=== PATIENT | female | born 1990 | race Caucasian/White ===

== ENCOUNTER 2017-07-02 09:18 | Emergency (ER) | payer MEDICAID ==
[~2017-07-02] VITALS: Ht 157.5 cm; Wt 56.7 kg
[2017-07-02 09:22] VITALS: BP 125/69
[2017-07-02] MEDS ORDERED: LIDOCAINE VISCOUS 2% UD 15 ML UDC ONE (09:51)
[2017-07-02] MEDS ORDERED: IBUPROFEN 600 MG TABLET PO ONE ×2 (09:52→10:00)
[2017-07-02] MEDS ORDERED: ACETAMINOPHEN 325 MG TABLET ONE (09:52)
[2017-07-02] MEDS ORDERED: LIDOCAINE VISCOUS 2% UD 15 ML UDC MM ONE (10:00)
[2017-07-02] MEDS ORDERED: ACETAMINOPHEN 325 MG TABLET PO ONE (10:00)
== END 2017-07-02 10:05 | disposition home or self-care (01) ==
LOC: ER 09:23
DX: J02.8 Acute pharyngitis due to other specified organisms (principal); B97.89 Other viral agents as the cause of diseases classified elsewhere
CPT/HCPCS: 99283; A4606; Z7610

== ENCOUNTER 2020-01-10 22:58 | Emergency (ER) | payer MEDICAID ==
[~2020-01-10] VITALS: Ht 157.5 cm; Wt 59.0 kg
--- NOTE | 2020-01-10 23:25 | NUR ---
PATIENT CAME TO ER BED 17 C/O UPPER ABDOMINAL PAIN RADIATING TO THE RIGHT FLANK SINCE LAST WEEK. PATIENT STATES THAT SHE HAS BEEN HAVING LOOSE BOWEL MOVEMENTS SINCE SUNDAY. PATIENT STATES SHE FEELS BLOATED.PATIENT STATES TAHT SHE HAD GONE TO URGENT CARE AND TELEMED EARLIER TODAY. AAOX4. NO SOB. BREATHING EVENLY AND UNLABORED ON ROOM AIR.
[2020-01-10] MEDS ORDERED: METOCLOPRAMIDE HCL 10 MG/2 ML VIAL ONE (23:28)
[2020-01-10] MEDS ORDERED: IV NS 0.9% 1,000 ML BAG IV ONE (23:30)
[2020-01-10] MEDS ORDERED: METOCLOPRAMIDE HCL 10 MG/2 ML VIAL IV ONE (23:30)
[2020-01-10 23:43] LABS: BASOPHILS % (AUTO) 0.2 % (0.0-2.0); EOSINOPHILS % (AUTO) 0.5 % (0.0-6.0); HEMATOCRIT 38 % (33-45); HEMOGLOBIN 12.7 g/dL (11.5-14.8); LYMPHOCYTES # (AUTO) 2.7 /CMM (0.8-4.8); LYMPHOCYTES % (AUTO) 28.5 % (20.0-44.0); MEAN CORPUSCULAR HGB CONC 33 g/dl (31.0-36.0); MEAN CORPUSCULAR VOLUME 87 fL (82-100); MONOCYTES # (AUTO) 0.8 /CMM (0.1-1.30); MONOCYTES % (AUTO) 7.9 % (2.0-12.0); NEUTROPHILS % (AUTO) 62.9 % (43.0-81.0); PLATELET COUNT (AUTO) 304 /CMM (150-450); RED BLOOD CELL COUNT(AUTO) 4.37 MIL/uL (4.0-5.2); WHITE BLOOD COUNT (AUTO) 9.6 K/uL (4.3-11.0)
--- NOTE | 2020-01-10 23:46 | NUR ---
MEDICATION REGLAN 10MG IV INFUSED WITH 50 ML OF NORMAL SALINE 0.9%.
[2020-01-10 23:52] LABS: CALCIUM, SERUM 8.7 mg/dL (8.5-10.1); POTASSIUM 3.4 mmol/L (3.5-5.1)
[2020-01-10 23:58] LABS: ALBUMIN 4.1 g/dL (3.4-5.0); BILIRUBIN,DIRECT 0.2 mg/dL (0.0-0.2); BILIRUBIN,TOTAL 0.5 mg/dL (0.2-1.0); TOTAL PROTEIN, SERUM 7.3 g/dL (6.4-8.2)
--- NOTE | 2020-01-10 23:59 | NUR ---
PATIENT STILL FEELS NAUSEOUS, MD NOTIFIED.
[2020-01-11] MEDS ORDERED: PROCHLORPERAZINE EDISYLATE 10 MG/2 ML VIAL IVP ONE
[2020-01-11] MEDS ORDERED: PROCHLORPERAZINE EDISYLATE 10 MG/2 ML VIAL ONE (00:04)
[2020-01-11 00:55] VITALS: BP 122/66
--- NOTE | 2020-01-11 00:55 | NUR ---
IV removed. Catheter intact and site benign. Pressure and 4x4 applied to site. No bleeding noted.
--- NOTE | 2020-01-11 00:55 | NUR ---
Patient discharged to home in stable condition. Written and verbal after care instructions given. Patient verbalizes understanding of instruction.
== END 2020-01-11 00:56 | disposition home or self-care (01) ==
LOC: ER 23:01
DX: A08.4 Viral intestinal infection, unspecified (principal); R19.7 Diarrhea, unspecified; Z60.2 Problems related to living alone
CPT/HCPCS: 36415; 80048; 80076; 83690; 84703; 85025; 96361; 96374; 96375; 99284; A4216; J0780; J2765; J7030

== ENCOUNTER 2020-01-12 13:53 | Emergency (ER) | payer MEDICAID ==
[~2020-01-12] VITALS: Ht 157.5 cm; Wt 59.0 kg
--- NOTE | 2020-01-12 14:00 | NUR ---
CAME IN FOR PAIN ON SURAL AREA. WAS TOLD BY "NURSE HOTLINE" THAT SHE HAS A BLOOD CLOT WHEN SHE TOLD THEM THAT SHE HAS HEART BURN AND PAIN IN BACK OF LEFT LEG, TO ER BED 11, HOOKED TO MONITOR, CHANGED TO [facility], AWAITING MD WARNER
--- NOTE | 2020-01-12 14:54 | NUR ---
FOR ANDREWS PARTIDA AT BEDSIDE
[2020-01-12] MEDS ORDERED: PANTOPRAZOLE 40 MG VIAL IV ONE (15:00)
[2020-01-12] MEDS ORDERED: PANTOPRAZOLE 40 MG VIAL ONE (15:14)
[2020-01-12 15:16] LABS: BASOPHILS % (AUTO) 0.4 % (0.0-2.0); EOSINOPHILS % (AUTO) 0.3 % (0.0-6.0); HEMATOCRIT 39 % (33-45); LYMPHOCYTES # (AUTO) 2.3 /CMM (0.8-4.8); LYMPHOCYTES % (AUTO) 30.4 % (20.0-44.0); MEAN CORPUSCULAR HGB CONC 33 g/dl (31.0-36.0); MEAN CORPUSCULAR VOLUME 88 fL (82-100); MONOCYTES # (AUTO) 0.6 /CMM (0.1-1.30); NEUTROPHILS # (AUTO) 4.5 /CMM (1.8-8.9); NEUTROPHILS % (AUTO) 60.9 % (43.0-81.0); PLATELET COUNT (AUTO) 280 /CMM (150-450); RED BLOOD CELL COUNT(AUTO) 4.46 MIL/uL (4.0-5.2); WHITE BLOOD COUNT (AUTO) 7.4 K/uL (4.3-11.0)
--- NOTE | 2020-01-12 15:20 | NUR ---
URINE SAMPLE COLLECTED AND SENT TO LAB
[2020-01-12 15:33] LABS: CALCIUM, SERUM 8.7 mg/dL (8.5-10.1); POTASSIUM 3.9 mmol/L (3.5-5.1)
[2020-01-12 15:36] LABS: APPEARANCE,URINE Clear (CLEAR); BILIRUBIN,URINE Negative (NEGATIVE); BLOOD, URINE Negative Ery/uL (NEGATIVE); COLOR,URINE Yellow (YELLOW); KETONES,URINE Negative (NEGATIVE); LEUKOCYTE ESTERASE ,URINE Negative (NEGATIVE); NITRITE, URINE Negative (NEGATIVE); PROTEIN,URINE Negative (NEGATIVE); UGLUCOSE Negative (NEGATIVE); UROBILINOGEN,URINE 0.2 EU/dL (0.2)
[2020-01-12 15:44] LABS: BILIRUBIN,DIRECT 0.1 mg/dL (0.0-0.2); BILIRUBIN,TOTAL 0.3 mg/dL (0.2-1.0); TOTAL PROTEIN, SERUM 7.6 g/dL (6.4-8.2)
--- NOTE | 2020-01-12 15:56 | NUR ---
CHILDREN'S TUTOR AT BEDSIDE FOR US
[2020-01-12] MEDS ORDERED: KETOROLAC TROMETHAMINE 15 MG/ML VIAL ONE (16:04)
[2020-01-12] MEDS ORDERED: KETOROLAC TROMETHAMINE INJ 30 MG/ML VIAL IV ONE (16:30)
--- NOTE | 2020-01-12 16:39 | NUR ---
IV removed. Catheter intact and site benign. Pressure and 4x4 applied to site. No bleeding noted. Patient discharged to home in stable condition. Written and verbal after care instructions given. Patient verbalizes understanding of instruction.
[2020-01-12 16:40] VITALS: BP 129/81
== END 2020-01-12 16:45 | disposition home or self-care (01) ==
LOC: ER 13:57
DX: M79.605 Pain in left leg (principal); E06.3 Autoimmune thyroiditis; Z60.2 Problems related to living alone
CPT/HCPCS: 36415; 80048; 80076; 81001; 83690; 83735; 84702; 85025; 93005 ×2; 93970; 96374; 96375; 99285; C9113; J1885; 81000-TC

== ENCOUNTER 2020-01-15 22:31 | Emergency (ER) | payer MEDICAID ==
[~2020-01-15] VITALS: Ht 157.5 cm; Wt 59.0 kg
--- NOTE | 2020-01-15 23:18 | NUR ---
WAIVER SIGNED, IN CHART
--- NOTE | 2020-01-15 23:24 | NUR ---
XRAY AT BEDSIDE
[2020-01-15 23:45] VITALS: BP 118/88
--- NOTE | 2020-01-15 23:46 | NUR ---
Patient discharged to home in stable condition. Written and verbal after care instructions given. Patient verbalizes understanding of instruction AND RX. PT AMBULATED OUT WITH A STEADY GAIT. VSS. NAD NOTED.
== END 2020-01-15 23:46 | disposition home or self-care (01) ==
LOC: ER 22:31
DX: K59.00 Constipation, unspecified (principal); Z60.2 Problems related to living alone
CPT/HCPCS: 74018

== ENCOUNTER 2022-10-08 03:29 | Emergency (ER) | payer MEDICAID, OTHER ==
[~2022-10-08] VITALS: Ht 157.5 cm; Wt 56.7 kg
[2022-10-08 04:01] VITALS: BP 108/70
--- NOTE | 2022-10-08 04:01 | NUR ---
BIBS WITH CC OF SORE THROAT X2 DAYS, WITH BODY ACHES AND LOW GRADE FEVER. PATIENT IS AAOX4. ABLE TO MAKE NEEDS KNOWN. PLACED COMFORTABLY IN BED 19
--- NOTE | 2022-10-08 04:16 | NUR ---
SEEN BY DR GONG AT BEDSIDE
--- NOTE | 2022-10-08 04:16 | NUR ---
COVID SWAB, STREP AND INFLUENZA SWAB DONE AND SENT TO LAB
--- NOTE | 2022-10-08 05:33 | NUR ---
Patient discharged to home in stable condition. Written and verbal after care instructions given. Patient verbalizes understanding of instruction.
== END 2022-10-08 05:33 | disposition home or self-care (01) ==
LOC: ER 03:40
DX: J02.8 Acute pharyngitis due to other specified organisms (principal); Z20.822 Contact with and (suspected) exposure to COVID-19; Z60.2 Problems related to living alone
CPT/HCPCS: 99283; 87426; 87804 ×2; 87880; C9803; 86403-TC